=== PATIENT | male | born 1965 | race Caucasian/White ===

== ENCOUNTER 2019-01-27 13:31 | Emergency (ER) | payer BC ==
[2019-01-27 14:13] VITALS: BP 110/70
--- NOTE | 2019-01-27 14:36 | UC ---
Ear Complaint HPI - HPI Summary HPI Summary: Pt c/o left ear pain, swelling, discharge X 2-3 days. Denies fever, chills, nasal congestion, or trauma to ear. - History of Current Complaint Chief Complaint: UCEar Stated Complaint: LEFT EAR CONCERN,NAUSEA Time Seen by Provider: 01/27/19 14:29 Hx Obtained From: Patient Onset/Duration: Gradual Onset, Lasting Days, Still Present, Worse Since Severity Initially: Mild Severity Currently: Moderate Pain Intensity: 4 Associated Signs/Symptoms: Positive: Discharge, Hearing Loss, Swelling @ - outer ear canal - Allergies/Home Medications Allergies/Adverse Reactions: Allergies Allergy/AdvReac Type Severity Reaction Status Date / Time loratadine [From Claritin-D] Allergy Unknown Verified 01/27/19 14:14 Reaction Details pseudoephedrine Allergy Unknown Verified 01/27/19 14:14 [From Claritin-D] Reaction Details environmental Allergy Runny Nose Uncoded 01/27/19 14:13 Home Medications: Home Medications Escitalopram Oxalate [Lexapro] 1 tab PO BEDTIME 01/27/19 [History Confirmed 10/10] PMH/Surg Hx/FS Hx/Imm Hx Previously Healthy: Yes - Surgical History Surgical History: Yes Surgery Procedure, Year, and Place: MENISCUS REPAIR LT KNEE 2010 - Family History Known Family History: Positive: Cardiac Disease - Social History Occupation: Employed Full-time Lives: With Family Alcohol Use: Occasionally Alcohol Amount: 1-2 beers Substance Use Type: None Smoking Status (MU): Never Smoked Tobacco Type: Smokeless Tobacco Amount Used/How Often: 1 can 2-3 days Have You Smoked in the Last Year: Yes - chewing tobacco - Immunization History Most Recent Influenza Vaccination: yes 03/10 Most Recent Tetanus Shot: 3-4 years ago Vaccination Up to Date: Yes Review of Systems All Other Systems Reviewed And Are Negative: Yes Constitutional: Positive: Negative Skin: Positive: Negative Eyes: Positive: Negative ENT: Positive: Ear Ache Respiratory: Positive: Negative Cardiovascular: Positive: Negative Gastrointestinal: Positive: Negative Genitourinary: Positive: Negative Motor: Positive: Negative Neurovascular: Positive: Negative Musculoskeletal: Positive: Negative Neurological: Positive: Negative Psychological: Positive: Negative Is Patient Immunocompromised?: No Physical Exam Triage Information Reviewed: Yes Appearance: Pain Distress Vital Signs: Initial Vital Signs Temp 98.3 F 01/27/19 14:09 Pulse 93 01/27/19 14:09 Resp 15 01/27/19 14:09 BP 110/70 01/27/19 14:09 Pulse Ox 97 01/27/19 14:09 Vital Signs Reviewed: Yes Eye Exam: Normal ENT: Positive: Other - left outer ear canal swollen shut with milky white discharge Dental Exam: Normal Neck exam: Normal Respiratory: Positive: No respiratory distress Musculoskeletal Exam: Normal Neurological Exam: Normal Psychological Exam: Normal Skin Exam: Normal Ear Complaint Course/Dx - Differential Dx/Diagnosis Differential Diagnosis/HQI/PQRI: Otitis Externa, Otitis Media, URI Provider Diagnosis: Otitis externa of left ear Discharge ED - Sign-Out/Discharge Documenting (check all that apply): Patient Departure All imaging exams completed and their final reports reviewed: No Studies - Discharge Plan Condition: Stable Disposition: HOME Prescriptions: Amoxicillin PO (*) [Amoxicillin 500 MG CAP*] 500 mg PO Q12H #20 cap Neomyc/Polym/HC 1% OTIC SUSP* [Cortisporin Otic Susp 1%*] 4 drop LEFT EAR QID 7 Days #1 btl predniSONE TAB* [Deltasone 10 MG TAB*] 30 mg PO DAILY #12 tab Patient Education Materials: Otitis Externa (ED) Referrals: Breanne Marley PA [Primary Care Provider] - If Needed - Billing Disposition and Condition Condition: STABLE Disposition: Home
== END 2019-01-27 14:44 | disposition home or self-care (01) ==
LOC: UCCORT 13:31
DX: H60.92 Unspecified otitis externa, left ear (principal); F17.290 Nicotine dependence, other tobacco product, uncomplicated
CPT/HCPCS: 99212; G0463